=== PATIENT | male | born 1990 | race Caucasian/White ===

== ENCOUNTER 2016-08-03 16:46 | Emergency (ER) | payer OTHER | END 2016-08-03 19:00 | disposition home or self-care (01) | LOC: ER1 16:46 | DX: T15.02XA Foreign body in cornea, left eye, initial encounter (principal); Y93.E9 Activity, other interior property and clothing maintenance; X58.XXXA Exposure to other specified factors, initial encounter | CPT/HCPCS: 99283 ==

== ENCOUNTER 2016-08-10 20:14 | Emergency (ER) | payer OTHER ==
[2016-08-10 22:23] LABS: HEMOGLOBIN 14.4 gm/dl (14.0-17.5); RED BLOOD COUNT 4.7 M/UL (4.20-5.50); WHITE BLOOD COUNT 14.2 K/UL (4.5-11.0)
[2016-08-10 22:42] LABS: BUN/CREATININE RATIO 14 (0-10)
== END 2016-08-11 00:20 | disposition home or self-care (01) ==
LOC: ER1 20:14
PROVIDERS: Family Medicine
DX: M54.5 Low back pain (principal); S30.810A Abrasion of lower back and pelvis, initial encounter; S70.212A Abrasion, left hip, initial encounter; S90.512A Abrasion, left ankle, initial encounter; S90.511A Abrasion, right ankle, initial encounter; S40.812A Abrasion of left upper arm, initial encounter; S40.811A Abrasion of right upper arm, initial encounter; F17.200 Nicotine dependence, unspecified, uncomplicated; B19.20 Unspecified viral hepatitis C without hepatic coma; V86.59XA Driver of other special all-terrain or other off-road motor vehicle injured in nontraffic accident, initial encounter
CPT/HCPCS: 36415; 71250; 73610; 80053; 81001; 85025; 90715; 96374; 96375; 99284; J0690; J2270; J2405; J7050

== ENCOUNTER 2020-05-11 19:22 | Emergency (ER) | payer OTHER ==
[~2020-05-11 19:22] MED LIST: IBUPROFEN800 MG PO; ROBITUSSIN AC480 ML PO
[2020-05-11] MEDS ORDERED: CEPHALEXIN500 MG PO (22:16)
[2020-05-11 22:53] LABS: HEMOGLOBIN 14.9 gm/dl (14.0-17.5); RED BLOOD COUNT 4.73 M/UL (4.20-5.50); WHITE BLOOD COUNT 11.5 K/UL (4.5-11.0)
[2020-05-11 23:16] LABS: BUN/CREATININE RATIO 13 (0-10)
[2020-05-11] MEDS ORDERED: IBUPROFEN600 MG PO (23:33)
[2020-05-12] MEDS ORDERED: ZOFRAN4 MG PO (14:13)
[2020-05-12] MEDS ORDERED: IBUPROFEN600 MG PO (14:13)
== END 2020-05-11 23:55 | disposition left against medical advice (07) ==
LOC: ER1 19:22
PROVIDERS: Emergency Medicine; Family Medicine
DX: S82.001A Unspecified fracture of right patella, initial encounter for closed fracture (principal); S66.306A Unspecified injury of extensor muscle, fascia and tendon of right little finger at wrist and hand level, initial encounter; S80.211A Abrasion, right knee, initial encounter; S80.212A Abrasion, left knee, initial encounter; Z23 Encounter for immunization; S60.511A Abrasion of right hand, initial encounter; V49.40XA Driver injured in collision with unspecified motor vehicles in traffic accident, initial encounter; Y92.410 Unspecified street and highway as the place of occurrence of the external cause
CPT/HCPCS: 70450; 71260; 73060; 73090; 73130; 73564; 80053; 80307; 81001; 83690; 85025; 85610; 85730; 90471; 90715; 99284; G0480; Q9967

== ENCOUNTER 2020-05-12 11:57 | Emergency (ER) | payer OTHER ==
[~2020-05-12 11:57] MED LIST changes: +CEPHALEXIN500 MG PO; +IBUPROFEN600 MG PO
[2020-05-12 13:09] LABS: HEMOGLOBIN 14.3 gm/dl (14.0-17.5); RED BLOOD COUNT 4.55 M/UL (4.20-5.50)
[2020-05-12 13:10] LABS: WHITE BLOOD COUNT 6.6 K/UL (4.5-11.0)
[2020-05-12 13:29] LABS: BUN/CREATININE RATIO 14 (0-10)
[2020-05-12] MEDS ORDERED: IBUPROFEN600 MG PO (14:13)
[2020-05-12] MEDS ORDERED: ZOFRAN4 MG PO (14:13)
== END 2020-05-12 14:20 | disposition home or self-care (01) ==
LOC: ER1 11:57
PROVIDERS: Physician Assistant Medical
DX: R10.84 Generalized abdominal pain (principal); F17.290 Nicotine dependence, other tobacco product, uncomplicated; R11.0 Nausea; V86.99XA Unspecified occupant of other special all-terrain or other off-road motor vehicle injured in nontraffic accident, initial encounter
CPT/HCPCS: 80053; 83690; 85025; 96374; 96375; 99284; C9113; J2405; Q9967

== ENCOUNTER 2020-06-18 16:52 | Emergency (ER) | payer OTHER ==
[~2020-06-18 16:52] MED LIST changes: +ZOFRAN4 MG PO
== END 2020-06-18 18:30 | disposition left against medical advice (07) ==
LOC: ER1 16:52
DX: Z53.21 Procedure and treatment not carried out due to patient leaving prior to being seen by health care provider (principal)

== ENCOUNTER 2020-07-10 20:19 | Observation (INO) | payer OTHER ==
[~2020-07-10] VITALS: Ht 175.3 cm; Wt 58.3 kg
[2020-07-10 22:22] LABS: HEMOGLOBIN 14.3 gm/dl (14.0-17.5); RED BLOOD COUNT 4.52 M/UL (4.20-5.50); WHITE BLOOD COUNT 6.5 K/UL (4.5-11.0)
[2020-07-10 22:50] LABS: BUN/CREATININE RATIO 17 (0-10)
[2020-07-11] MEDS ORDERED: HYDROCODON-ACE1 EAC6 PO (15:05)
[2020-07-11] MEDS ORDERED: BACTRIM DS TAB1 EACH PO (15:05)
== END 2020-07-11 18:30 | disposition home or self-care (01) ==
LOC: ER1 20:19 → CDU 22:38 → M/S 22:38
PROVIDERS: Physician Assistant Medical; ADMIT Orthopaedic Surgery
DX: S68.123A Partial traumatic metacarpophalangeal amputation of left middle finger, initial encounter (principal); F17.290 Nicotine dependence, other tobacco product, uncomplicated; Z20.822 Contact with and (suspected) exposure to COVID-19; X58.XXXA Exposure to other specified factors, initial encounter
CPT/HCPCS: 73130; 80053; 85025; 85610; 96372; 96374; 96375; 99284; G0378; J0690; J1100; J1885; J2001; J2250; J2270; J2405; J2704; J3010; J7030; U0002